=== PATIENT | female | born 1985 | race Caucasian/White ===

== ENCOUNTER 2018-10-28 13:18 | Emergency (ER) | payer MEDICAID ==
[~2018-10-28] VITALS: Wt 62.5 kg
[2018-10-28] MEDS ORDERED: KETOROLAC 30 MG INJ IM STA (16:42)
[2018-10-28] MEDS ORDERED: DEXAMETHASONE 10 MG/ML 1 ML INJ IM ONE (17:00)
[2018-10-28] MEDS ORDERED: HYDROCODONE/APAP (5/325) TAB PO ONE (19:00)
[2018-10-28] MEDS ORDERED: LORAZEPAM 2 MG INJ IM ONE (19:00)
[2018-10-28] MEDS ORDERED: BACLOFEN 10 MG TAB PO ONE (19:00)
[2018-10-28] MEDS ORDERED: CYCL10TA7 PO (19:38)
[2018-10-28] MEDS ORDERED: IBUP-1542 PO (19:38)
--- NOTE | 2018-10-28 19:47 | ERD ---
ER Documentation Chief Complaint Chief Complaint right side neck pain when awoke this am. no trauma. no neuro deficit HPI This is a 33-year-old Slovak-speaking female presents to the ED complaining of right neck pain after waking up this morning. Patient states she has been unable to twist her head to the right since this morning. She denies any trauma. She denies any headache, fevers. Denies any difficulty swallowing. Denies any difficulty opening or closing her jaw. Denies any focal weakness. ROS All systems reviewed and are negative except as per history of present illness. Medications Home Meds Active Scripts Cyclobenzaprine Hcl* (Cyclobenzaprine Hcl*) 10 Mg Tablet, 10 MG PO TID, #15 TAB Prov:DISHIGRIKIANMACKENZIEUR N PA-C 10/28/18 Ibuprofen* (Motrin*) 600 Mg Tab, 600 MG PO Q6H PRN for PAIN AND OR ELEVATED TEMP, #30 TAB Prov:DISHIGRIKIANZEPYUR N PA-C 10/28/18 Allergies Allergies: Coded Allergies: No Known Drug Allergy (Verified Allergy, Unknown, 02/12/14) PMhx/Soc Hx Alcohol Use: No Hx Substance Use: No Hx Tobacco Use: No Smoking Status: Never smoker Physical Exam Vitals Vital Signs Date Temp Pulse Resp B/P (MAP) Pulse Ox O2 O2 Flow FiO2 Time Delivery Rate 10/28/18 98.0 79 18 130/81 98 13:40 (97) Physical Exam Const: No acute distress Head: Atraumatic Eyes: Normal Conjunctiva ENT: Normal External Ears, Nose and Mouth. No trismus. Neck: + Unable to move head to the right secondary to pain, palpable muscle spasm to the right paracervical region, no midline tenderness. Resp: Clear to auscultation bilaterally Cardio: Regular rate and rhythm, no murmurs Skin: No petechiae or rashes Ext: No cyanosis, or edema Neur: Awake and alert Psych: Normal Mood and Affect Results 24 hrs Laboratory Tests Test 10/28/18 16:57 POC Beta HCG, Qualitative NEGATIVE Current Medications Medications Dose Sig/Santa Start Time Status Last (Trade) Ordered Route PRN Stop Time Admin Dose Reason Admin 10 mg ONCE ONCE 10/28/18 DC 10/28/18 Dexamethasone IM 17:00 17:00 (Decadron) 10/28/18 17:01 Ketorolac 30 mg ONCE STAT 10/28/18 DC 10/28/18 Tromethamine IM 16:42 17:04 (Toradol) 10/28/18 16:43 Baclofen 10 mg ONCE ONCE 10/28/18 DC 10/28/18 (Lioresal) PO 19:00 19:05 10/28/18 19:01 1 tab ONCE ONCE 10/28/18 DC 10/28/18 Acetaminophen PO 19:00 19:05 / 10/28/18 19:01 Hydrocodone Bitart (Cameron (5/325)) Lorazepam 0.5 mg ONCE ONCE 10/28/18 DC 10/28/18 (Ativan) IM 19:00 19:06 10/28/18 19:01 Procedures/MDM ED COURSE: The patient was given Decadron, Toradol, Ativan, baclofen, Cameron The medication was well tolerated and the patient had market improvement in symptoms. The patient remained stable throughout ED course. MEDICAL DECISION MAKIN-year-old female presents with atraumatic right-sided neck spasm. She has no fever here, vital signs are normal, she is neurologically intact without any complaints of a headache. I have low suspicion for meningitis, spinal cord injury, spinal tumor/mass or compression fracture. Symptoms are likely musculoskeletal in nature. Patient had much improvement of her range of motion after muscle relaxants and steroids here. She was discharged home with a prescription for muscle spasms as well as ibuprofen. She was told to follow up with PCP in 1 week, otherwise return to the ED for any new or worsening symptoms. PRESCRIPTIONS: Cyclobenzaprine, ibuprofen SPECIALIST FOLLOW UP RECOMMENDED: None Patient has been advised to follow up with primary care in 1-2 days. Departure Diagnosis: Primary Impression: Neck muscle spasm Condition: Stable Patient Instructions: Muscle Spasm Ref[facility] Usted se hurley hecho un examen mdico de control que le indica que no est en ran condicin que requiera tratamiento urgente en el Departamento de Emergencia. Un estudio ms profundo y el tratamiento de zhao condicin pueden esperar sin ningn riesgo hasta que usted sea atendida/o en el consultorio de zhao mdico o ran clnica. Es responsabilidad suya arreglar ran nicky para el seguimiento del michelle. MANEJO DE CONDICIONES NO URGENTES EN EL FUTURO 1) Si usted tiene un mdico de atencin primaria: Usted debera llamar a zhao mdico de atencin primaria antes de venir al departamento de emergencia. Despus de las horas de consultorio, zhao doctor o zhao asociado/a est disponible por telfono. El mdico o enfermero de aracely en el servicio telefnico puede asesorarle por noah medio para atender el problema, o michelle contrario se puede programar ran nicky. 2) Si usted no tiene un mdico de atencin primaria: Llame al mdico o clnica de referencia que aparece abajo milvia las horas de consultorio para hacer ran nicky para que le vean. CLINICAS: [place] [id number] [phone] [facility] [phone] [address] [facility] [phone] [facility] [phone] [address] [facility] [facility] [address] [place] [id number] [phone] [facility]. [phone] [address] [facility] () ciara se hurley hecho un examen mdico de control que le indica que no est en ran condicin que requiera tratamiento urgente en el Departamento de Emergencia. Un estudio ms profundo y el tratamiento de zhao condicin pueden esperar sin ningn riesgo hasta que usted sea atendida/o en el consultorio de zhao mdico o ran clnica. Es responsabilidad suya arreglar ran nicky para el seguimiento del michelle. MANEJO DE CONDICIONES NO URGENTES EN EL FUTURO 1) Si usted tiene un mdico de atencin primaria: Usted debera llamar a zhao mdico de atencin primaria antes de venir al departamento de emergencia. Despus de las horas de consultorio, zhao doctor o zhao asociado/a est disponible por telfono. El mdico o enfermero de aracely en el servicio telefnico puede asesorarle por noah medio para atender el problema, o michelle contrario se puede programar ran nicky. 2) Si usted no tiene un mdico de atencin primaria: Llame al mdico o condado institucions de referencia que aparece abajo milvia las horas de consultorio para hacer ran nicky para que le vean. SI USTED NO PUEDE PAGAR PARA MIKA UN MEDICO puede ir a: [facility] [address] [place], [place] [id number] [place] [address] [address] [place] [address] [facility] [address] [place] [address] [facility] [facility] [address] [place] [phone] Additional Instructions: Paciente aconseja volver a Departamento de urgencias inmediatamente para sntomas nuevos o que empeoran . Paciente aconseja posteriores con el PCP en 1-2 jennings. Si el paciente no tiene ninguna de atencin primaria pueden seguir con [facility] [address] [place] [address] [address] BASILIO SHIN PA-C Oct 28, 2018 19:47
[2018-10-28 20:19] VITALS: BP 141/78; PULSE 76; RESP 16
== END 2018-10-28 20:00 | disposition home or self-care (01) ==
LOC: FTE 13:18
DX: M62.838 Other muscle spasm (principal)
CPT/HCPCS: 81025; J1100; J1885; J2060; Z7610; 96372